=== PATIENT | female | born 1975 ===

== ENCOUNTER → 2017-10-19 | Outpatient (CLI) | payer BC | END | disposition home or self-care (01) | LOC: C.PAPS 14:55 | PROVIDERS: ATTEND Obstetrics & Gynecology | DX: Z01.419 Encounter for gynecological examination (general) (routine) without abnormal findings (principal) ==

== ENCOUNTER → 2017-10-20 | Outpatient (CLI) | payer BC | END | disposition home or self-care (01) | LOC: C.LABMFLN 16:36 | PROVIDERS: ATTEND Obstetrics & Gynecology | DX: N92.6 Irregular menstruation, unspecified (principal) ==

== ENCOUNTER → 2017-10-27 | Outpatient (CLI) | payer BC ==
--- NOTE | 2017-10-27 16:00 | MAMMOGRAPHY REPORT ---
BILATERAL DIGITAL SCREENING MAMMOGRAM TOMOSYNTHESIS WITH CAD: 10/27/2017 CLINICAL HISTORY: Routine screening. Patient has no complaints. TECHNIQUE: Breast tomosynthesis in addition to standard 2D mammography was performed. Current study was also evaluated with a Computer Aided Detection (CAD) system. COMPARISON: Comparison is made to exams dated: 09/29/2016 mammogram, 09/17/2015 mammogram, and 2013 mammogram - [facility]. BREAST COMPOSITION: The tissue of both breasts is extremely dense, which lowers the sensitivity of m ammography. FINDINGS: The glandular pattern is similar to prior mammograms. No suspicious spiculated or irregula r mass, architectural distortion or cluster of new, suspicious microcalcifications is seen. IMPRESSION: ACR BI-RADS CATEGORY 1: NEGATIVE There is no mammographic evidence of malignancy. A 1 year screening mammogram is recommended. The pa tient will receive written notification of the results. Approximately 10% of breast cancers are not detected with mammography. A negative mammographic report should not delay biopsy if a clinically suggestive mass is present. Maru Purcell M.D. ay/:10/27/2017 13:22:05 Pipe Coverer Helper: Sarah Jewell, [facility] letter sent: Normal 1/2 BI-RADS Code: ACR BI-RADS Category 1: Negative
== END | disposition home or self-care (01) ==
LOC: C.MAMM 10:41
PROVIDERS: ATTEND Obstetrics & Gynecology
DX: Z12.31 Encounter for screening mammogram for malignant neoplasm of breast (principal)

== ENCOUNTER → 2017-12-14 | Outpatient (CLI) | payer BC | END | disposition home or self-care (01) | LOC: C.PATHSPEC 15:35 | PROVIDERS: ATTEND Obstetrics & Gynecology | DX: N92.6 Irregular menstruation, unspecified (principal) ==

== ENCOUNTER → 2018-02-03 | Day surgery (SDC) | payer BC ==
[2018-01-12 12:41] VITALS: Ht 170.2 cm; Wt 69.1 kg
[~2018-02-03] VITALS: Ht 170.2 cm; Wt 69.1 kg
[~2018-02-03] MED LIST: ATROPINE SULFATE 0.1 MG/ML 5ML SYR IV PRN; DEXAMETHASONE SOD INJ 4 MG/ML VIAL ONE; EpHEDrine SULFATE INJ 50 MG/ML AMP IV PRN; EpHEDrine SULFATE INJ 50 MG/ML AMP ONE; FENTANYL CITRATE INJ 50 MCG/1 ML 2 ML VIAL IV PRN; FENTANYL CITRATE INJ 50 MCG/1 ML 2 ML VIAL ONE; IBUPROFEN 600 MG TAB PO PRN; KETOROLAC TROMETHAMINE 30 MG/ML VIAL IV. PRN; LACTATED RINGER'S 1000ML 1,000 ML IV SCH; LIDOCAINE HCL 2% 2 ML VIAL (20MG/ML) ONE; MIDAZOLAM HCL 1 MG/ML 2ML VIAL ONE; MULT-506 PO; MoRPHine SULFATE 2 MG/ML CARP IV PRN; MoRPHine SULFATE 4 MG/ML 1 ML CARP\\VIAL IV PRN; ONDANSETRON INJ 2 MG/ML 2 ML VIAL IV PRN; ONDANSETRON INJ 2 MG/ML 2 ML VIAL ONE; OXYCODONE/ACETAMINOPHEN 5-325 TAB PO PRN; PROPOFOL IV EMULSION 10 MG/ML 20 ML VIAL IV ONE; SODIUM CHLORIDE 0.9% 1000ML 1,000 ML IV SCH; VALA500T60 PO; WELLBUTRIN PO
--- NOTE | 2018-02-03 06:52 | History & Physical Bridge - [place] ---
H&P Re-Evaluation Bridge Note: I have examined the patient, reviewed the History & Physical and in the interval since the performance of the History & Physical I have noted the following changes of clinical significance: No changes noted
--- NOTE | 2018-02-03 07:32 | [facility] Post Operative Brief Note ---
Immediate Operative Summary Operative Date Feb 03, 2018. Pre-Operative Diagnosis Endometrial mass Irregular menstrual cycle Post-Operative Diagnosis same as preop Procedure(s) Performed Dilatation And Curettage, Hysteroscopy, Endometrial Polypectomy, Endometrial Ablation Surgeon Dr. Powers Sales Associate Key Holder Surgeon(s) none Estimated Blood Loss 0ml Findings Consistent with Post-Op Diagnosis Fluids (cc crystalloids) 700cc, 220cc deficit Specimens A: endometrial polyp B: endometrial curettings Drains None Anesthesia Type General Complication(s) none Disposition Accompanied Pt To Recovery: no Disposition: Recovery Room / PACU
--- NOTE | 2018-02-03 07:34 | Discharge Instructions ---
Discharge Instructions Date of Service Feb 03, 2018. Visit Reason for Visit: Endometrial Mass, Irregular Menstrual Cycle Discharge Discharge Diagnosis / Problem: s/p D&C/ hysteroscopy, removal of mass, ablation Discharge Goals Goal(s): Specific goals Medications Stopped Medications Name(s): last time daily meds-02/02 Activity Recommendations Activity Limitations: per Instructions/Follow-up section Anesthesia . Post Anesthesia Instructions: If you have had General Anesthesia or IV Sedation: * Do not drive today. * Resume driving when surgeon permits. * Do not make important decisions or sign legal documents today. * Call surgeon for: 1. Temperature elevations greater than 101 degrees F. 2. Uncontrollable pain. 3. Excessive bleeding. 4. Persistent nausea and vomiting. 5. Medication intolerance (nausea, vomiting or rash). * For nausea and vomiting use only clear liquids such as: tea, soda, bouillon until nausea subsides, then gradually increase diet as tolerated. * If you have any concerns or questions, call your surgeon's office. If physician is unavailable and it is an emergency, call 911 or go to the nearest emergency room. . Instructions / Follow-Up Instructions / Follow-Up ACTIVITY RECOMMENDATIONS: * Avoid tampons, douching, hot tubs, pools, and intercourse until bleeding has stopped. * May shower as usual. * No strenuous activity for 24-48 hours. After 24-48 hours, you may do anything you feel like doing (driving and sports are okay). SPECIAL CARE INSTRUCTIONS: Special Diet: * Mild nausea may occur in the immediate post-operative period. * Take clear liquids such as tea, cola or bouillon until all nausea has subsided; you may then resume your normal diet. Special Care: * Light bleeding and vaginal spotting can last from a few days to 3-4 weeks. Call your doctor if bleeding becomes heavier than the heaviest part of your period. * Check your temperature twice a day for one week. If it goes above 100.4 degrees Fahrenheit (38.0 Celsius), notify your doctor. * Call your doctor's office for an appointment for 6 weeks after your surgery. FOLLOW-UP VISIT: Call your doctor's office for an appointment for 6 weeks after your surgery. Diet Recommendations Recommended Home Diet: no limitations, resume previous diet Procedures Procedures Performed: Dilatation And Curettage, Hysteroscopy, Endometrial Polypectomy, Endometrial Ablation Pending Studies Studies pending at discharge: no Medical Emergencies . Who to Call and When: Medical Emergencies: If at any time you feel your situation is an emergency, please call 911 immediately. . Non-Emergent Contact Non-Emergency issues call your: Information Security Officer . . "Provider Documentation" section prepared by Lillian Powers. .
--- NOTE | 2018-02-03 07:53 | OPERATIVE REPORT ---
DATE OF OPERATION: 02/03/2018 PREOPERATIVE DIAGNOSES: 1. Endometrial mass. 2. Menorrhagia. POSTOPERATIVE DIAGNOSES: Same. PROCEDURES: 1. D&C hysteroscopy. 2. MyoSure removal of endometrial mass. 3. NovaSure endometrial ablation. SURGEON: Lillian Powers MD. ANESTHESIA: General per laryngeal mask. ESTIMATED BLOOD LOSS: None. INDICATIONS: The patient is a 42-year-old 1, para 1 who has heavy periods and during the workup, was found to have an endometrial mass. FINDINGS: There was a small flat polypoid endometrial mass in the upper anterior uterine wall. Otherwise, the lining appeared normal. Both tubal ostia were visualized and appeared normal. Uterus sounded to 8 cm, cervical length 4 cm, cavity length 4 cm, cavity width 3.7 cm. Power 81 fuentes. Time of procedure 1.1 minute and 24 seconds. Charred endometrium noted throughout the end of the procedure. COMPLICATIONS: None. FLUIDS: 700 mL of IV fluids and a 220 mL deficit. URINE OUTPUT: Clear yellow urine drained from the bladder at the end of the procedure. DRAINS: None. DISPOSITION: To recovery room in stable condition. DESCRIPTION OF THE PROCEDURE: The patient was taken to the operating room where she was identified verbally and by bracelet. She was placed in dorsal supine position where general anesthesia was induced without difficulty. She was then placed in dorsal lithotomy position in candy-cane stirrups and prepped and draped in normal sterile fashion. Timeout was held identifying correct patient, procedure and positioning. An exam under anesthesia revealed a small anteverted uterus that was mobile. There were no adnexal masses noted. The bladder was drained of urine. A weighted speculum was placed to posterior vagina. The anterior lip of the cervix was grasped with a single tooth tenaculum. Uterus sounded to 8 cm. It was dilated to #23 Brittani dilator. The MyoSure scope was introduced into the uterus with the above noted findings. The MyoSure was then introduced and the polyp was removed. The scope was removed and a curettage was then done in 365 degrees. The NovaSure endometrial ablation device was then called for and was inserted into the cavity. The cavity integrity test was adequate and with a power of 31 fuentes, the procedure was performed for 1 minute and 24 seconds. The NovaSure endometrial ablation device was removed. The hysteroscope was replaced into the uterus and global endometrial ablation was noted. The scope was removed and the procedure was terminated after the instruments were removed from the vagina. All sponge, lap and needle counts were correct x2. The patient tolerated the procedure well and was taken to recovery room in stable condition. I attest to the content of the Intraoperative Record and any orders documented therein. Any exception s are noted below.
--- NOTE | 2018-02-03 07:55 | Anesthesia Progress Nt - [facility] ---
Anesthesia Post Op Note Date & Time Feb 03, 2018 at 07:55 Vital Signs Pain Intensity: 0 Vital Signs Past 12 Hours Date Time Temp Pulse Resp B/P (MAP) Pulse Ox O2 Delivery O2 Flow Rate FiO2 02/03/18 07:43 36.8 68 12 101/72 100 Mask 7 02/03/18 06:32 36.1 70 20 126/90 (102) 100 Room Air Notes Mental Status: alert / awake / arousable, participated in evaluation Pt Amnestic to Procedure: Yes Nausea / Vomiting: adequately controlled Pain: adequately controlled Airway Patency, RR, SpO2: stable & adequate BP & HR: stable & adequate Hydration State: stable & adequate Anesthetic Complications: no major complications apparent
[2018-02-03 08:24] VITALS: TEMP 36.3
[2018-02-03 08:43] VITALS: BP 120/81; PULSE 65; O2SAT 99
== END | disposition home or self-care (01) ==
LOC: X.SURG 06:22
PROVIDERS: ATTEND Obstetrics & Gynecology
DX: N84.0 Polyp of corpus uteri (principal); N92.0 Excessive and frequent menstruation with regular cycle; K21.9 Gastro-esophageal reflux disease without esophagitis; M54.12 Radiculopathy, cervical region; G62.9 Polyneuropathy, unspecified; F32.9 Major depressive disorder, single episode, unspecified; Z87.891 Personal history of nicotine dependence; Z82.3 Family history of stroke; Z80.49 Family history of malignant neoplasm of other genital organs